=== PATIENT | female | born 1960 | race African-American/Black ===

== ENCOUNTER 2016-10-27 11:12 | Observation (INO) ==
[2016-10-27 11:28] LABS: HEMATOCRIT 37.6 % (37.0-47.0); HEMOGLOBIN 12.6 g/dL (12.0-16.0); MCH 27.9 PG (27-31); MCHC 33.5 g/dL (33-37); MCV 83.2 FL (81-99); MPV 10.9 FL (7.4-10.4); RBC 4.52 XMIL (4.2-5.4)
[2016-10-27 11:29] LABS: URINE MICRO REVIEW NEEDED? NO; URINE SOURCE VOIDED
[2016-10-27 11:39] LABS: BILIRUBIN URINE NEGATIVE (NEGATIVE); BLOOD URINE NEGATIVE (NEGATIVE); COLOR YELLOW; GLUCOSE URINE NEGATIVE (NEGATIVE); LEUKOCYTES URINE NEGATIVE (NEGATIVE); NITRITE URINE NEGATIVE (NEGATIVE); PH URINE 5.5; PROTEIN URINE NEGATIVE (NEGATIVE); SP GRAVITY URINE 1.021; TURBIDITY URINE CLEAR (CLEAR); UROBILINOGEN URINE NORMAL (NORMAL)
[2016-10-27 11:42] LABS: UR EPITHELIAL CELLS <10 /HPF (<10); URINE BACTERIA NEGATIVE /HPF; URINE RBC <10 /HPF (<10); URINE WBC <10 /HPF (<10)
[2016-10-27 11:47] LABS: AGAP 10; ALBUMIN 4.5 g/dL (3.5-5.0); ALKALINE PHOSPHATASE 89 U/L (32-104); AMYLASE 88 U/L (20-200); BUN 17 mg/dL (8-22); CALCIUM 9.7 mg/dL (8.8-10.2); CHLORIDE 102 mmol/L (98-107); COSMO 283; GOT 54 U/L (10-30); GPT 25 U/L (10-36); LIPASE 81 U/L (13-60); POTASSIUM 4.3 mmol/L (3.5-5.1); SODIUM 141 mmol/L (136-145); TCO2 29 mmol/L (25-35); TOTAL PROTEIN 8.3 g/dL (6.3-8.3)
[2016-10-27] MEDS ORDERED: DESYREL PO PRN (13:09)
[2016-10-27] MEDS ORDERED: LOVENOX SUBQ SCH (13:09)
[2016-10-27] MEDS ORDERED: TYLENOL PO PRN (13:09)
--- NOTE | 2016-10-27 13:57 | Diag Imaging Result Doc PS360 ---
EXAM: US GB < RUQ (LIMITED) INDICATION: RUQ abdominal pain with nausea vomiting COMPARISON: 01/23/2015 FINDINGS: No gallstones are appreciated. However, the gallbladder wall appears thickened and edematous. It measures up to 4.5 mm in thickness. The common bile duct is normal in diameter. Sonographic Santiago's sign was reported to be positive by the pole inspector. The liver is grossly unremarkable. Portal venous flow is hepatopedal. The pancreas is obscured. The aorta and IVC are grossly unremarkable. The right kidney is grossly unremarkable. IMPRESSION: No gallstones identified. However, the gallbladder wall appears thickened and edematous and there was a reportedly positive sonographic Santiago's sign. Cholecystitis cannot be excluded. Electronically signed by Prabhakar Campbell 10/27/2016 1:55 PM
--- NOTE | 2016-10-27 16:52 | Diag Imaging Result Doc PS360 ---
EXAM: HIDA SCAN W/ EJECTION FRACTION INDICATION: persistent RUQ ABDOMINAL PAIN TECHNIQUE: 527 mCi of technetium 99 Choletec was administered intravenously and images were obtained in the usual fashion post administration. COMPARISON: None. FINDINGS: There is normal immediate hepatocellular uptake after administration. Activity is seen in the gallbladder beginning at about 23 minutes post administration. Activity is seen in small bowel beginning at about 20 minutes post administration. 8 ounces of liquid fatty meal was then administered orally. The calculated gallbladder ejection fraction is 23%. IMPRESSION: Depressed gallbladder ejection fraction suggesting possible hypokinesis. Electronically signed by Prabhakar Campbell 10/27/2016 4:50 PM
[2016-10-27] MEDS: NS 1,000 ML IV SCH (17:20)
--- NOTE | 2016-10-27 18:02 | PROGRESS NOTE ---
DATE: 10/27/2016 SUBJECTIVE: I admitted Ms. Ramey earlier this afternoon, with right upper quadrant abdominal pain, in association with intractable nausea and vomiting. An ultrasound of the gallbladder demonstrated no gallstones, but generalized inflammation of the gallbladder. A followup HIDA scan demonstrated an EF of 23%. She continues with nausea, dry heaves, and right upper quadrant abdominal pain. OBJECTIVE: She is afebrile. Vital signs are stable. CV: Regular rate and rhythm. Lungs clear. Abdomen has mild to moderate right upper quadrant tenderness to deep palpation. She has good bowel sounds. ASSESSMENT AND PLAN: Acalculous cholecystitis. I will give her clear liquids this evening and hold her NPO, in anticipation that she may undergo surgery in the morning. I will consult Dr. Malave to see her for surgical evaluation for her underlying acalculous cholecystitis. cc: Belem Manzo MD
--- NOTE | 2016-10-27 19:07 | CONSULTATION ---
DATE OF CONSULTATION: 10/27/2016 CHIEF COMPLAINT: Right upper quadrant pain and tenderness. HISTORY: This is a 55-year-old black female who last night after going to work began experiencing severe right upper quadrant pain associated with nausea and vomiting. She was evaluated on 10/05/2016 in the ER for left flank pain. At that time, a renal CT scan noted some inflammation of her gallbladder. HIDA scan today shows a diminished ejection fraction. Ultrasound today does not show any gallstones. The gallbladder wall does appear thickened and edematous. PAST HISTORY: Includes esophageal reflux, hyperlipidemia. PREVIOUS SURGERIES: Include a vaginal hysterectomy and appendectomy. MEDICATIONS: At home include aspirin, Carafate, omeprazole and Paxil. SOCIAL HISTORY: She denies smoking or alcohol use. FAMILY HISTORY: Her mother has had a cholecystectomy. ALLERGIES: She has no known drug allergies. REVIEW OF SYSTEMS: As noted above. PHYSICAL EXAM: Vital signs: Heart rate is 100, blood pressure 148/80. Neck: No cervical adenopathy. Lungs: Bilateral breath sounds. Heart: Regular rate, rhythm. Abdomen: Soft. She is mildly tender the right upper quadrant. Extremities: No peripheral edema. Neuro: She is awake and alert. LABS: White count 7400, hemoglobin is 12.6, LFTs are within normal limits. Amylase is 88, lipase is slightly elevated 81. ASSESSMENT: Probable biliary colic and biliary dyskinesia. I discussed cholecystectomy with her the benefits and risks. She wants to proceed. We will add her to the schedule for the . cc: MD Belem Patel MD
[2016-10-27] MEDS ORDERED: TUMS PO ONE (21:07)
--- NOTE | 2016-10-28 08:27 | PROGRESS NOTE ---
DATE: 10/28/2016 SUBJECTIVE: Mrs. Ramey continues with persistent nausea and right upper quadrant abdominal pain. A HIDA scan with CCK demonstrated gallbladder dysfunction with an EF of 23%. OBJECTIVE: Vital signs: Temperature 97.7 degrees, pulse 73, respirations 16, BP 117/61. CV: Regular rate and rhythm. Lungs: Clear. Abdomen: Mild epigastric and right upper quadrant tenderness to deep palpation. No rebound or guarding. ASSESSMENT AND PLAN: Acalculous cholecystitis. Dr. Malave has been consulted to see the patient and will proceed with a laparoscopic cholecystectomy today. cc: Belem Manzo MD
[2016-10-28] MEDS: PRILOSEC PO SCH ×2 (10:09→22:07)
[2016-10-28] MEDS: PAXIL PO SCH (10:09)
[2016-10-28] MEDS: ZOFRAN IV PRN ×2 (10:10→23:58)
[2016-10-28] MEDS: NS 1,000 ML IV SCH ×3 (10:16→21:54)
[2016-10-28] MEDS ORDERED: DIPRIVAN 1% ONE (15:30)
[2016-10-28] MEDS ORDERED: FENTANYL ONE (15:30)
[2016-10-28] MEDS ORDERED: KEFZOL 1 GM/D5W 1 GM/50 ML IVPB ONE (16:20)
[2016-10-28] MEDS ORDERED: LR 1,000 ML ONE (16:21)
[2016-10-28] MEDS ORDERED: MARCAINE 0.25% PF/EPI 1:200,000 ONE (16:21)
[2016-10-28] MEDS ORDERED: SODIUM CHLORIDE 0.9% ONE (16:21)
[2016-10-28] MEDS ORDERED: ROBINUL ONE (17:18)
[2016-10-28] MEDS ORDERED: ZOFRAN ONE (17:32)
[2016-10-28] MEDS ORDERED: DECADRON ONE (17:32)
[2016-10-28] MEDS: DEMEROL ONE ×3 (17:56→18:07)
--- NOTE | 2016-10-28 17:57 | Diag Imaging Result Doc PS360 ---
OPERATIVE CHOLANGIOGRAM - 10/28/2016 INDICATION: BILLARY DYSKINESIA TECHNIQUE: The exam was performed by the patient's surgeon. Two images were submitted. COMPARISON: None FINDINGS: Contrast was infused into the cystic duct. This outlines a normal common bile duct. There is good passage of contrast into the duodenum. IMPRESSION: No complication. Electronically signed by Fransico Henry 10/28/2016 5:55 PM
[2016-10-28] MEDS ORDERED: PHENERGAN ONE (18:17)
[2016-10-28] MEDS: BUPRENEX IV PRN (18:57)
[2016-10-28] MEDS: PERIDEX MT SCH (20:20)
[2016-10-29] MEDS: BUPRENEX IV PRN ×4 (00:11→19:09)
[2016-10-29] MEDS: ZOFRAN IV PRN ×3 (04:47→23:18)
--- NOTE | 2016-10-29 04:57 | OPERATIVE NOTE ---
PROCEDURE DATE: 10/28/2016 PROCEDURE PERFORMED: Laparoscopic cholecystectomy with operative cholangiogram. SURGEON: Karlos Malave MD [employer] CONSULTANT: Merry Taylor and Deborah Wilde. PREOPERATIVE DIAGNOSIS: Biliary dyskinesia. POSTOPERATIVE DIAGNOSIS: Biliary dyskinesia. FINDINGS: Cholangiogram revealed a normal size common duct, free flow in the duodenum. No intraluminal filling defects were seen. DESCRIPTION OF PROCEDURE: Satisfactory general endotracheal anesthesia was achieved. The abdomen is prepped and draped in a sterile fashion. We anesthetized skin at the base of the umbilicus, incised the skin and dissected down the fascia. Scored the fascia. Introduced 11 trocar Optiview technique into the abdominal cavity. We insufflated through this trocar. Under direct visualization, introduced a 5 trocar in the midclavicular line, a 5 trocar near the anterior axillary line, and an 11 mm trocar in the midepigastrium. We grasped the fundus of the gallbladder, reflected cephalad. We placed the patient in reverse Trendelenburg and turned her to the left. We began dissection of the triangle of Calot. We identified the cystic duct, clipped it near the junction with the gallbladder. We incised the cystic duct. Introduced a Timoteo catheter. We shot the cholangiogram. The findings above were noted. We removed the cholangiogram catheter, clipped the cystic duct on the opposite side with cystic ductotomy x2 and transected it. The cystic artery was clipped proximally x2, distally x1, and divided. We then used the cautery spatula to dissect the gallbladder away from the liver. After complete separation of gallbladder from the liver, we changed videolaparoscope to the mid epigastric trocar. We introduced a claw forceps through the umbilical trocar. We delivered the gallbladder out of the abdominal cavity through the umbilical trocar site. We looked back. Hemostasis was satisfactory. We used a Silas-Gabriel wound closure for the epigastrium. We then desufflated and removed the trocars. We closed the fascia at the umbilicus and 2-0 Polysorb fascial stitch was placed under direct visualization. We then closed the skin at each incision with 4-0 Polysorb subcuticular stitches. Sterile OpSite were applied. She tolerated it well. Was sent to the recovery room in satisfactory condition. cc: MD Belem Patel MD [facility]PITALChela
[2016-10-29] MEDS ORDERED: SODIUM CHLORIDE 0.9% INJ PRN (06:20)
[2016-10-29] MEDS ORDERED: PHENERGAN IV PRN (06:20)
[2016-10-29] MEDS ORDERED: ZOFRAN IV PRN (08:34)
[2016-10-29] MEDS ORDERED: NS 500 ML IV ONE (08:35)
[2016-10-29] MEDS: PAXIL PO SCH (09:02)
[2016-10-29] MEDS: PERIDEX MT SCH ×2 (09:02→21:08)
[2016-10-29] MEDS: PRILOSEC PO SCH (09:02)
[2016-10-29] MEDS ORDERED: SODIUM CHLORIDE 0.9% INJ SCH (12:30)
[2016-10-29] MEDS: PROTONIX IV SCH ×2 (12:51→22:19)
[2016-10-29] MEDS: NS 1,000 ML IV SCH ×3 (12:53→21:08)
--- NOTE | 2016-10-29 12:57 | PROGRESS NOTE ---
DATE: 10/29/2016 SUBJECTIVE: Mrs. Ramey is postoperative day #1 following a laparoscopic cholecystectomy for acalculous cholecystitis. She is with complaint of persistent nausea and vomiting. She has not passed any flatus or had a bowel movement. She is with complaint of increasing reflux, sour brash, and vomiting up darkish material. It did not appeared to look like coffee-ground emesis. Her hemoglobin and hematocrit were 12.6 and 37.6 on 10/27/2016. OBJECTIVE: Vital Signs: She is afebrile. Pulse 90, respiratory rate 14. Cardiovascular: Regular rate and rhythm. No murmur noted. Lungs: Clear. Abdomen: Mild to moderate epigastric and right upper quadrant abdominal tenderness to deep palpation. No rebound or guarding. The abdomen is soft. She has good bowel sounds. ASSESSMENT AND PLAN: Postoperative day #1, status post laparoscopic cholecystectomy for acalculous cholecystitis. She is having significant amounts of nausea and vomiting postoperatively. I will check a CBC, CMP, amylase, and lipase. She did have an intraoperative cholangiogram, which demonstrated no retained stones. Certainly if her liver enzymes are elevated, that would raise the possibility of a retained stone. I am going to check a flat and upright abdominal film to make sure there is no suggestion of an ileus. She is having increasing reflux and sour brash. I will place her on pantoprazole 40 mg IV q.[address] Baltazar for consideration of an esophagogastroduodenoscopy. cc: Belem Manzo MD
[2016-10-29 13:00] LABS: HEMATOCRIT 33.8 % (37.0-47.0); HEMOGLOBIN 11.1 g/dL (12.0-16.0); MCH 27.9 PG (27-31); MCHC 32.8 g/dL (33-37); MCV 84.9 FL (81-99); MPV 10.6 FL (7.4-10.4); RBC 3.98 XMIL (4.2-5.4)
[2016-10-29 13:33] LABS: AMYLASE 64 U/L (20-200); LIPASE 39 U/L (13-60)
[2016-10-29 13:36] LABS: AGAP 8; ALBUMIN 4.1 g/dL (3.5-5.0); ALKALINE PHOSPHATASE 76 U/L (32-104); BUN 14 mg/dL (8-22); CHLORIDE 101 mmol/L (98-107); COSMO 275; GOT 48 U/L (10-30); GPT 50 U/L (10-36); POTASSIUM 4.1 mmol/L (3.5-5.1); SODIUM 137 mmol/L (136-145); TCO2 28 mmol/L (25-35); TOTAL BILIRUBIN 0.65 mg/dL (0.20-1.00); TOTAL PROTEIN 7.3 g/dL (6.3-8.3)
--- NOTE | 2016-10-29 14:37 | Diag Imaging Result Doc PS360 ---
EXAM: ABDOMEN FLAT/UPRIGHT HISTORY: persiatant nausea and vomiting TECHNIQUE: Four views COMPARISON: 10/28/2013 FINDINGS: No free air beneath the diaphragm. The gallbladder has been removed. There is stool throughout the colon. The bowel loops are not dilated. There are surgical clips and sutures in the right lower quadrant. Small left abdominal calcification near the transverse process of the L3 vertebra is unchanged. There is a left pelvic phlebolith well. IMPRESSION: Constipation. Electronically signed by Pan Grover 10/29/2016 2:35 PM
[2016-10-29] MEDS ORDERED: FLEET MINERAL OIL ENEMA PR ONE (15:34)
[2016-10-29] MEDS: MIRALAX PO SCH (22:31)
[2016-10-30] MEDS: PROTONIX IV SCH (03:10)
[2016-10-30] MEDS: BUPRENEX IV PRN (05:09)
[2016-10-30] MEDS: PERIDEX MT SCH (08:49)
[2016-10-30] MEDS: NS 1,000 ML IV SCH ×3 (08:49→13:29)
[2016-10-30] MEDS: PAXIL PO SCH (13:29)
[2016-10-30] MEDS: MIRALAX PO SCH (13:29)
[2016-10-30] MEDS ORDERED: XYLOCAINE-MPF 2% ONE (13:49)
[2016-10-30] MEDS ORDERED: DIPRIVAN 1% ONE (13:49)
--- NOTE | 2016-10-30 14:26 | OPERATIVE NOTE ---
PROCEDURE DATE: 10/30/2016 PROCEDURE: Esophagogastroduodenoscopy. PREOPERATIVE DIAGNOSIS: Nausea and vomiting. POSTOPERATIVE DIAGNOSIS: A 1 cm hiatal hernia, negative exam. DESCRIPTION OF PROCEDURE: After informed consent and adequate intravenous sedation by anesthesia, the scope was introduced to the esophagus which is normal. Small 1 cm hiatal hernia present. Stomach and duodenum normal. There is a small amount of bile present. No ulcers, no evidence of gastritis or outlet obstruction. Duodenum is clear. The scope was withdrawn. The patient tolerated the procedure without any immediate complications. RECOMMENDATION: Advance the diet. Discharge planning. cc: MD Belem Lee MD
[2016-10-30 14:49] VITALS: BP 143/78
--- NOTE | 2016-11-26 15:59 | DISCHARGE SUMMARY ---
ADMISSION DATE: 10/27/2016 DISCHARGE DATE: 10/30/2016 DISCHARGE DIAGNOSES: 1. Acalculous cholecystitis status post laparoscopic cholecystectomy. 2. Gastroesophageal reflux disease. 3. Depression. DISCHARGE INSTRUCTIONS: 1. Return to clinic to see me, Dr. Demond Manzo, in 1 week. 2. Return to clinic in [address] Karlos Malave. 3. Full liquid diet and may advance as tolerated. 4. No heavy lifting or driving for 1 week. MEDICATIONS: Paxil 20 mg daily. MiraLAX 17 g in 8 ounces of water daily. Zofran ODT 4 mg sublingual q.6 hours p.r.n. nausea, vomiting. Omeprazole 40 mg daily. Percocet 10/325 one q.6 hours p.r.n. pain. DISCHARGE PHYSICAL EXAMINATION: General Appearance: This is a well-developed, well-nourished, 56- year-old, lady in no apparent distress. Vital Signs: She is afebrile. Vital signs are stable. Cardiovascular: Regular rate and rhythm. Lungs: Clear. Abdomen: Soft, nontender, with active bowel sounds. Mrs. Perla Ramey was admitted to [facility] with persistent right upper quadrant abdominal pain in association with intractable nausea and vomiting. An ultrasound of the gallbladder was unremarkable. A follow-up HIDA scan with CCK demonstrated an ejection fraction of 23%. Dr. Malave saw her in consultation and performed a laparoscopic cholecystectomy on . An intraoperative complication demonstrated no retained stone. Postoperatively she had persistent nausea and vomiting. She had not passed any flatus or BM. She had increasing reflux and sour brash, and vomiting up darkish material. Amylase and lipase were normal. Her liver enzymes were mildly elevated. Her total bilirubin was not elevated. A flat and uprighTt abdominal film did not demonstrate any evidence of an ileus or obstruction. We bolused her with normal saline and treated her nausea and vomiting with Zofran. We added IV Protonix and consulted Dr. Baltazar. An EGD was unremarkable. We began clear liquids and advised her to advance the diet as tolerated. We reviewed antireflux precautions and will continue Omaprezole. Havcing reached maximum hospital benefit, she was discharged in stable condition. cc: Belem Manzo MD [facility]
== END 2016-10-30 15:19 | disposition home or self-care (01) ==
LOC: DIRADM 11:12 → LAB 11:12 → DIRADM 12:24 → 4N 12:56
PROVIDERS: ADMIT Internal Medicine; ATTEND Internal Medicine